=== PATIENT | female | born 1955 | race Caucasian/White ===

== ENCOUNTER → 2018-05-26 | Outpatient (CLI) | payer OTHER | LOC: LAB.O 08:40 | DX: E78.2 Mixed hyperlipidemia (principal) ==

== ENCOUNTER → 2018-10-31 | Outpatient (CLI) | payer OTHER | LOC: LAB.O 10:26 | PROVIDERS: ATTEND Nurse Practitioner Family | DX: Z01.419 Encounter for gynecological examination (general) (routine) without abnormal findings (principal) ==

== ENCOUNTER → 2018-12-13 | Outpatient (CLI) | payer OTHER | LOC: LAB.O 08:15 | PROVIDERS: ATTEND Specialist | DX: M05.79 Rheumatoid arthritis with rheumatoid factor of multiple sites without organ or systems involvement (principal); Z79.1 Long term (current) use of non-steroidal anti-inflammatories (NSAID) ==

== ENCOUNTER → 2020-01-14 | Outpatient (CLI) | payer SELFPAY ==
--- NOTE | 2020-01-15 08:18 | CT ---
EXAM DESCRIPTION: Cardiac Calcium Scoring Screen CLINICAL HISTORY: CALCIUM SCREEN COMPARISON: None Available. TECHNIQUE: Multiple thin slice axial CT images with computer aided detection of calcific plaque. This exam was performed according to our departmental dose-optimization program, which includes automated exposure control, adjustment of the mA and/or kV according to patient size and/or use of iterative reconstruction technique. FINDINGS: Lingular atelectasis. I agree with the computer generated calcium score. Calcium score is 16. Electronically signed by: Luisito Garg MD 01/15/2020 8:17 AM CDT
== END ==
LOC: CT 15:07
PROVIDERS: ATTEND Nurse Practitioner Family
DX: E78.2 Mixed hyperlipidemia (principal)